=== PATIENT | female | born 1935 | race Caucasian/White ===

== ENCOUNTER 2017-07-05 01:27 | Emergency (ER) | payer MEDICARE | END 2017-07-05 02:15 | disposition home or self-care (01) | LOC: BURERS 01:27 | DX: S60.945A Unspecified superficial injury of left ring finger, initial encounter (principal); E78.5 Hyperlipidemia, unspecified; I10 Essential (primary) hypertension; F41.9 Anxiety disorder, unspecified; F32.9 Major depressive disorder, single episode, unspecified; Z79.899 Other long term (current) drug therapy; W22.8XXA Striking against or struck by other objects, initial encounter | CPT/HCPCS: 99283 ==

== ENCOUNTER 2018-02-04 14:29 | Emergency (ER) | payer MEDICARE ==
[2018-02-04] MEDS ORDERED: Benzonatate 100 MG CAP ONE (14:51)
== END 2018-02-04 14:56 | disposition home or self-care (01) ==
LOC: BURERS 14:29
DX: R05 Cough (principal); F41.9 Anxiety disorder, unspecified; F32.9 Major depressive disorder, single episode, unspecified; I10 Essential (primary) hypertension; E78.5 Hyperlipidemia, unspecified; Z79.82 Long term (current) use of aspirin; Z79.899 Other long term (current) drug therapy
CPT/HCPCS: 99283

== ENCOUNTER 2018-08-09 20:44 | Emergency (ER) | payer MEDICARE ==
[2018-08-09] MEDS ORDERED: Ibuprofen 200 MG TAB ONE (21:43)
--- NOTE | 2018-08-09 22:39 | RAD ---
RADIOGRAPH LEFT WRIST 3 VIEWS: 08/09/18 at 8:48 p.m. HISTORY: 83-year-old female with left wrist pain. No mention of trauma. FINDINGS: No acute fracture is identified, but the osteopenia and degenerative changes could obscure a nondispl aced or minimally displaced fracture. If there is snuffbox tenderness following trauma that suggests an occult scaphoid fracture, then the general recommendation is immobilization followed by follow up radiograph in 5 - 10 days. There are very severe degenerative changes at the first CMC joint, with ch ronic subluxation and angulation, and absence of portions of bone of both the base of first metacarpa l and the trapezium. There is severe chondrocalcinosis of the TFCC. Other than the first CMC, the res t of the joint spaces are maintained without erosions or significant osteophytes. There are also calc ifications in the soft tissues volar and dorsal to the carpal bones, and adjacent to the first CMC. IMPRESSION: 1. No fracture identified. 2. Severe osteoarthrosis of the first carpometacarpal joint. 3. Extensive chondrocalcinosis, including that of the triangular fibrocartilage complex. 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 POS: [facility]
== END 2018-08-09 21:50 | disposition home or self-care (01) ==
LOC: BURERS 20:44
DX: S63.502A Unspecified sprain of left wrist, initial encounter (principal); E78.5 Hyperlipidemia, unspecified; I10 Essential (primary) hypertension; F32.9 Major depressive disorder, single episode, unspecified; Z79.899 Other long term (current) drug therapy; Z79.82 Long term (current) use of aspirin; W01.0XXA Fall on same level from slipping, tripping and stumbling without subsequent striking against object, initial encounter
CPT/HCPCS: 29125

== ENCOUNTER 2018-09-27 14:42 | Emergency (ER) | payer MEDICARE ==
[2018-09-27 15:14] LABS: #Basophils 0.1 thou/uL (0.0-0.2); #Eosinphils 0.2 thou/uL (0.0-0.7); #Lymphocytes 1.4 thou/uL (1.20-3.40); #Monocytes 0.4 thou/uL (0.11-0.59); #Neutrophils 2.9 thou/uL (1.40-6.50); %Eosinophils 3.8 % (0.0-10.0); %Lymphocytes 28.3 % (21.0-51.0); %Monocytes 7.6 % (0.0-10.0); %Neutrophils 59.3 % (42.0-75.0); Hemoglobin 13.1 g/dL (12.0-16.0); Mean Corpuscular HGB CONC 33.9 g/dL (32.0-36.0); Mean Corpuscular Hemoglobin 29.6 pg (27.0-31.0); Mean Corpuscular Volume 87.4 fL (78.0-98.0); Mean Platelet Volume 8.2 fL (7.4-10.4); Platelet Count 171 thou/uL (130-400); RBC Distribution Width 11.7 % (11.5-14.5); Red Blood Cell (RBC) Count 4.42 mill/uL (4.20-5.40); White Blood Cell (WBC) Count 4.9 thou/uL (4.8-10.8)
[2018-09-27 15:33] LABS: ALT (SGPT) 17 U/L (8-55); AST (SGOT) 15 U/L (5-34); Albumin 3.8 g/dL (3.4-4.8); Alkaline Phosphatase 68 U/L (40-150); Anion Gap 13 mmol/L (10-20); BUN (Urea Nitrogen) 22 mg/dL (9.8-20.1); Bilirubin, Total 0.3 mg/dL (0.2-1.2); Calc. Creatinine Clearance 0 mL/min (70-130); Calcium 9.2 mg/dL (7.8-10.44); Carbon Dioxide 24 mmol/L (23-31); Chloride 100 mmol/L (98-107); Estimated GFR-MDRD 55; Globulin 2.6 g/dL (2.4-3.5); Glucose 111 mg/dL (83-110); Potassium 4.1 mmol/L (3.5-5.1); Protein, Total 6.4 g/dL (6.0-8.3); Sodium 133 mmol/L (136-145)
[2018-09-27 15:38] LABS: CKMB 1.6 ng/mL (0-6.6); Troponin I Less than 0.010 ng/mL (< 0.028)
--- NOTE | 2018-09-27 15:45 | RAD ---
CHEST TWO VIEWS: 09/27/18 HISTORY: Cough and weakness. COMPARISON: 04/03/17. FINDINGS: The cardiac silhouette and pulmonary vasculature are unremarkable. Mediastinum is midline with aortic calcification. No confluent air space consolidation, pneumothorax, or pleural fluid. IMPRESSION: Atherosclerosis. No active cardiopulmonary abnormalities are otherwise demonstrated. POS: [facility]
[2018-09-27 17:02] LABS: Clarity Cloudy (Clear)
[2018-09-27 17:03] LABS: Bilirubin Negative (Negative); Blood, Urine Trace (Negative); Glucose, Urine (Dipstick) Negative (Negative); Leukocyte Large (Negative); Nitrite Positive (Negative); Protein, Urine (Dipstick) Negative (Neg-Trace); Urobilinogen 0.2 mg/dL (0.2-1.0); pH, Urine 6.5 (5.0-9.0)
[2018-09-27 17:08] LABS: Bacteria/HPF 4+ HPF (None Seen); Crystals/HPF None Seen HPF (Negative); Hyaline Casts/LPF NONE SEEN LPF (0-3 Hyaline); Other Casts/LPF None Seen LPF (0-3 Hyaline); Oval Fat Bodies/HPF None Seen HPF (None Seen); RBC/HPF 0-3 HPF (0-3); Renal Epithelial None Seen HPF (0-3); Sperm/HPF None Seen HPF (None Seen); Squamous Epithelial None Seen HPF (0-3); Transitional Epithelial NONE SEEN HPF (0-3); Trichomonas/HPF None Seen HPF (None Seen); Yeast-All Forms None Seen HPF (None Seen)
== END 2018-09-27 17:15 | disposition home or self-care (01) ==
LOC: BURERS 14:42
DX: N39.0 Urinary tract infection, site not specified (principal); I10 Essential (primary) hypertension; E78.5 Hyperlipidemia, unspecified; F32.9 Major depressive disorder, single episode, unspecified; Z79.899 Other long term (current) drug therapy
CPT/HCPCS: 51701; 71046; 80053; 81003; 81015; 82553; 83605; 84484; 85025; 93005; A4353

== ENCOUNTER 2019-06-02 12:39 | Emergency (ER) | payer MEDICARE | END 2019-06-02 13:20 | disposition home or self-care (01) | LOC: BURERS 12:39 | DX: L50.9 Urticaria, unspecified (principal); I10 Essential (primary) hypertension; E78.5 Hyperlipidemia, unspecified; F32.9 Major depressive disorder, single episode, unspecified; Z79.82 Long term (current) use of aspirin; Z79.899 Other long term (current) drug therapy | CPT/HCPCS: 99282 ==

== ENCOUNTER 2020-08-22 12:54 | Inpatient (IN) | payer MEDICARE, OTHER ==
[2020-08-22 13:42] LABS: Bilirubin Negative (Negative); Blood, Urine Trace (Negative); Clarity Clear (Clear); Glucose, Urine (Dipstick) Negative (Negative); Ketone, Urine Negative (Negative); Leukocyte Negative (Negative); Nitrite Negative (Negative); Protein, Urine (Dipstick) Trace mg/dL (Neg-Trace); Specific Gravity, Urine 1.015 (1.005-1.030); Urobilinogen 0.2 mg/dL (Less than 2)
[2020-08-22 13:44] LABS: Bacteria/HPF Rare-Few HPF (None Seen); RBC/HPF 0-3 HPF (0-3); Squamous Epithelial 0-3 HPF (0-3); WBC/HPF None Seen HPF (0-3)
[2020-08-22 14:28] LABS: Hemoglobin 13.6 g/dL (12.0-16.0); Mean Corpuscular HGB CONC 31.1 g/dL (32.0-36.0); Mean Corpuscular Hemoglobin 29.2 pg (27.0-31.0); Platelet Count 146 thou/uL (130-400); RBC Distribution Width 11.9 % (11.5-14.5); Red Blood Cell (RBC) Count 4.65 mill/uL (4.20-5.40); White Blood Cell (WBC) Count 7.2 thou/uL (4.8-10.8)
[2020-08-22 14:38] LABS: ALT (SGPT) 13 U/L (8-55); AST (SGOT) 12 U/L (5-34); Albumin 3.6 g/dL (3.4-4.8); Alkaline Phosphatase 63 U/L (40-110); Anion Gap 16 mmol/L (10-20); BUN (Urea Nitrogen) 21 mg/dL (9.8-20.1); Bilirubin, Total 0.3 mg/dL (0.2-1.2); Calc. Creatinine Clearance 0 mL/min (70-130); Carbon Dioxide 21 mmol/L (23-31); Chloride 103 mmol/L (98-107); Estimated GFR-MDRD 44; Globulin 2.9 g/dL (2.4-3.5); Glucose 103 mg/dL (83-110); Lipase 35 U/L (8-78); Potassium 3.8 mmol/L (3.5-5.1); Protein, Total 6.5 g/dL (6.0-8.3); Sodium 136 mmol/L (136-145)
[2020-08-22 14:58] LABS: MDiff Complete? YES
[2020-08-22 14:59] LABS: Manual Diff?? YES
[2020-08-22 15:00] LABS: Band 32 % (5-11); Lymphocytes 8 % (21-51); Monocytes 5 % (0-10); Neutrophil 55 % (42-75)
[2020-08-22] MEDS ORDERED: Sodium Chloride 0.9% 100 ML ONE (16:24)
[2020-08-22] MEDS ORDERED: Piperacillin/Tazobactam 4.5 GM VIAL ONE (16:24)
[2020-08-22 18:27] VITALS: BMI 21.7
[2020-08-22] MEDS ORDERED: Acetaminophen 325 MG TAB PO PRN (19:00)
[2020-08-22] MEDS ORDERED: FLU VACC QS2020-21(65YR UP)/PF 240 MCG/0.7 ML SYRINGE IM ONE (21:00)
[2020-08-22] MEDS: traZODone HCl 50 MG TAB PO SCH (22:14)
[2020-08-22] MEDS: Amlodipine 5 MG TAB PO SCH (22:14)
[2020-08-22] MEDS: Latanoprost 0.005% Ophth Soln 2.5 ml Bottle EA EYE SCH (22:15)
[2020-08-22] MEDS: Polyethylene Glycol OPTH DROP 15 ML BOT EA EYE SCH (22:15)
[2020-08-22] MEDS ORDERED: Piperacillin/Tazobactam 4.5 GM in Sodium Chloride 0.9% 100 ML IVPB SCH (23:59)
[2020-08-23] MEDS ORDERED: cloNIDine 0.1 MG TAB ONE (00:37)
[2020-08-23] MEDS: cloNIDine 0.1 MG TAB PO PRN (01:03)
[2020-08-23 05:31] LABS: ALT (SGPT) 12 U/L (8-55); AST (SGOT) 11 U/L (5-34); Albumin 3.2 g/dL (3.4-4.8); Alkaline Phosphatase 52 U/L (40-110); Anion Gap 15 mmol/L (10-20); BUN (Urea Nitrogen) 21 mg/dL (9.8-20.1); Bilirubin, Total 0.5 mg/dL (0.2-1.2); Calc. Creatinine Clearance 27 mL/min (70-130); Calcium 8.5 mg/dL (7.8-10.44); Carbon Dioxide 20 mmol/L (23-31); Chloride 104 mmol/L (98-107); Estimated GFR-MDRD 35; Globulin 2.5 g/dL (2.4-3.5); Glucose 95 mg/dL (83-110); Potassium 3.1 mmol/L (3.5-5.1); Protein, Total 5.7 g/dL (6.0-8.3); Sodium 136 mmol/L (136-145)
[2020-08-23 06:00] LABS: Hemoglobin 12.7 g/dL (12.0-16.0); Mean Corpuscular Hemoglobin 29.6 pg (27.0-31.0); Mean Corpuscular Volume 92.4 fL (78.0-98.0); Mean Platelet Volume 9.9 fL (7.4-10.4); Platelet Count 148 thou/uL (130-400); RBC Distribution Width 11.9 % (11.5-14.5); White Blood Cell (WBC) Count 7.2 thou/uL (4.8-10.8)
[2020-08-23 06:06] LABS: Band 10 % (5-11); Lymphocytes 9 % (21-51); MDiff Complete? YES; Monocytes 10 % (0-10); Neutrophil 70 % (42-75); Platelet Morphology Comment Appears Adequate; RBC Morphology Normal; Reactive Lymphocytes 1 % (0-10)
[2020-08-23] MEDS ORDERED: Potassium Chloride 20 MEQ TAB PO SCH (06:15)
--- NOTE | 2020-08-23 07:20 | RAD ---
PORTABLE CHEST: Date: 08/22/2020 An AP portable film at 1351 hours is compared with the 08/25/2019 study. There is mild elevation of the left hemidiaphragm which was not present before. There is a little bit of linear streaking in the left base which could be atelectasis. Slight blunting of the left costoph renic angle seems little different than before, however. The heart is borderline in size, but not sub stantially different over time. There is no congestion of the vessels or pulmonary edema. Faint calci fication is present in the aortic arch. IMPRESSION: Slight volume loss in the left lung today compared to the 08/25/2019 study. The cause is not apparent . POS: [facility]
[2020-08-23] MEDS: D5 1/2 NS w/20 mEq KCL 1,000 ML IV SCH (07:46)
[2020-08-23] MEDS: Venlafaxine HCl XR 75 MG CAP PO SCH (09:10)
[2020-08-23] MEDS: busPIRone HCl 5 MG TAB PO SCH (09:10)
[2020-08-23] MEDS: metroNIDAZOLE 250 MG TAB PO SCH ×3 (09:10→21:38)
[2020-08-23] MEDS: Aspirin 81 mg Enteric Coated Tablet PO SCH (09:11)
[2020-08-23] MEDS: Vit A,C & E/Lutein/Minerals Tablet PO SCH (09:11)
[2020-08-23] MEDS: Polyethylene Glycol OPTH DROP 15 ML BOT EA EYE SCH ×2 (09:11→21:39)
--- NOTE | 2020-08-23 12:52 | HP ---
CHIEF COMPLAINT: Fever and diarrhea. HISTORY OF PRESENT ILLNESS: An 85-year-old female was brought to the [facility] Emergency Department last night by her systems operator with complaints of fever, malaise, decreased intake and diarrhea present for the last several days. The patient was noted to have a rectal temperature of 101.4 in the emergency department. She does not identify any recent sick contacts, travel, antibiotic intake, or any other etiology which may have precipitated her diarrhea and fever. She denied having any significant upper respiratory symptoms nor any genitourinary symptoms. She has no evidence of skin infection to cause her fever either. Stool cultures were obtained along with urine and blood cultures. Initial lab work showed no leukocytosis, however, noted elevation in bands, neutrophils at 32%. She was provided with IV vanc and Zosyn in the emergency department. She was also swabbed for COVID. Secondary to the patient's advanced age, deconditioned state, elevated fever with bandemia and associated diarrhea she has been admitted for further care. PAST MEDICAL HISTORY: Includes hypertension, dyslipidemia, anxiety with depression, gastroesophageal reflux disease, and scoliosis. PAST SURGICAL HISTORY: Includes cardiac catheterization, hysterectomy and bladder sling surgery. SOCIAL HISTORY: The patient denies smoking, ETOH, or illicit drug use. She lives at home alone but has a systems operator 6 days a week. FAMILY HISTORY: Noncontributory. ALLERGIES: NO KNOWN DRUG ALLERGIES. CURRENT MEDICATIONS: 1. Latanoprost ophthalmic one drop to each eye daily. 2. Aspirin 81 mg daily. 3. Venlafaxine 225 mg daily. 4. Systane eye drops. 5. Buspirone 7.5 mg daily. 6. PreserVision AREDS daily. 7. Amlodipine 5 mg daily. 8. Trazodone 50 mg at bedtime. REVIEW OF SYSTEMS: GENERAL: The patient complains of fatigue and fever. EAR, NOSE AND THROAT: She denies sore throat, nasal drainage or congestion. CARDIOVASCULAR: She denies chest pain or palpitations. RESPIRATORY: Denies shortness of breath or cough. GASTRO: Denies nausea or vomiting. She does report diarrhea and mild intermittent generalized abdominal discomfort. GENITOURINARY: Denies dysuria. MUSCULOSKELETAL: Denies joint swelling or pain. DERM: Denies rash. NEURO: Denies headache. LABORATORY DATA: White blood cell count of 7.2, hemoglobin 13.6, hematocrit 46.7, and platelets are 146. Bandemia, elevated at 32. This is improved. Band neutrophils at 10 this morning. Sodium 136, potassium is 3.1, BUN is 21 with a creatinine 1.42, GFR is 35, glucose 95, lactic acid 1.1, AST 11, ALT 12. Troponin was 0.016. BNP at 237. Lipase 35. TSH is 1.1107. Urine was negative for leukocyte esterase and nitrites. COVID swab results are pending. Chest x-ray results are pending. PHYSICAL EXAMINATION: VITAL SIGNS: Temperature is 99.1, pulse is 78, blood pressure is 112/54, respiratory rate of 16, oxygen is 95% on room air. GENERAL: The patient is alert and oriented, in no acute distress. She has generalized weakness. HEAD, EYES, EARS, NOSE, AND THROAT: She has dry mucous membranes. Pupils are equal, round, and reactive to light. Extraocular muscles are intact bilaterally. She is normocephalic, atraumatic. NECK: Supple with no meningeal signs. CARDIAC: Regular rate and rhythm. Normal S1, S2. No murmurs, rubs, or gallops. PULMONARY: No respiratory distress. Clear to auscultation bilaterally without wheezes, rales, or rhonchi. ABDOMEN: Soft and nontender to palpation with no rebound or guarding. EXTREMITIES: No clubbing, cyanosis, or edema. SCDs are in place. She has a peripheral IV access in the right upper extremity. NEUROLOGIC: Nonfocal with cranial nerves 2 through 12 grossly intact. DERM: No rashes. ASSESSMENT AND PLAN: 1. Fever. I suspect this to be secondary to the patient's diarrheal illness as she does not display urinary tract infection, skin infection or obvious upper respiratory infection. She is on contact and respiratory precautions with a COVID swab, results pending at this time. Cultures of stool, urine and blood are all pending and will be followed. She has been started on Zosyn empirically. I will add p.o. metronidazole secondary to suspicion for Clostridium difficile. 2. Diarrhea. Cultures are pending with antibiotics started as stated above. 3. Dehydration. The patient has dry mucous membranes with mild renal impairment from her baseline with a BUN to creatinine ratio of 20:1. We will therefore start gentle intravenous hydration at 50 mL an hour, D5 half-normal saline with 20 mEq KCl. 4. Hypokalemia. We will give her a one-time dose of potassium chloride 40 mEq now and further supply this gently through intravenous hydration. 5. Hypertension. The patient has been resumed on her usual blood pressure medications. She did have an elevated blood pressure overnight for which p.r.n. clonidine has been added for systolic blood pressure readings greater than 160 as needed. 6. Anxiety with depression. She will be resumed on her usual medications for this. 7. Generalized weakness. We will seek physical therapy evaluation secondary to patient's advanced age and deconditioning. 8. Code status is full. Job ID: [id number] [facility]
[2020-08-23] MEDS ORDERED: Saccharomyces boulardii 250 MG CAP PO SCH (15:15)
[2020-08-23 16:12] LABS: SARS-CoV-2 MS2 Positive; SARS-CoV-2 N Gene Negative; SARS-CoV-2 S Gene Negative; SARS-CoV-2 by NAA Not Detected (NotDetected); SARS-CoV-2 orf1ab Negative
[2020-08-23] MEDS: Amlodipine 5 MG TAB PO SCH (21:38)
[2020-08-23] MEDS: traZODone HCl 50 MG TAB PO SCH (21:38)
[2020-08-23] MEDS: Latanoprost 0.005% Ophth Soln 2.5 ml Bottle EA EYE SCH (21:39)
[2020-08-24 05:21] LABS: Hemoglobin 13.2 g/dL (12.0-16.0); Mean Corpuscular HGB CONC 30.6 g/dL (32.0-36.0); Mean Corpuscular Hemoglobin 28.9 pg (27.0-31.0); Mean Corpuscular Volume 94.5 fL (78.0-98.0); Mean Platelet Volume 8.6 fL (7.4-10.4); Platelet Count 125 thou/uL (130-400); RBC Distribution Width 11.8 % (11.5-14.5); Red Blood Cell (RBC) Count 4.57 mill/uL (4.20-5.40); White Blood Cell (WBC) Count 5.9 thou/uL (4.8-10.8)
[2020-08-24 05:26] LABS: ALT (SGPT) 14 U/L (8-55); AST (SGOT) 13 U/L (5-34); Albumin 3.3 g/dL (3.4-4.8); Alkaline Phosphatase 51 U/L (40-110); Anion Gap 12 mmol/L (10-20); BUN (Urea Nitrogen) 19 mg/dL (9.8-20.1); Bilirubin, Total 0.3 mg/dL (0.2-1.2); Calc. Creatinine Clearance 35 mL/min (70-130); Calcium 8.8 mg/dL (7.8-10.44); Carbon Dioxide 21 mmol/L (23-31); Chloride 107 mmol/L (98-107); Estimated GFR-MDRD 48; Globulin 2.5 g/dL (2.4-3.5); Glucose 97 mg/dL (83-110); Potassium 3.7 mmol/L (3.5-5.1); Protein, Total 5.8 g/dL (6.0-8.3); Sodium 136 mmol/L (136-145)
[2020-08-24] MEDS: cloNIDine 0.1 MG TAB PO PRN ×2 (05:33→20:29)
[2020-08-24] MEDS: D5 1/2 NS w/20 mEq KCL 1,000 ML IV SCH ×2 (05:35→23:38)
[2020-08-24 05:52] LABS: Band 8 % (5-11); Eosinophils 2 % (0-10); Lymphocytes 15 % (21-51); MDiff Complete? YES; Monocytes 11 % (0-10); Neutrophil 63 % (42-75); Platelet Morphology Comment Appears Decreased; RBC Morphology Normal
[2020-08-24] MEDS: metroNIDAZOLE 250 MG TAB PO SCH ×3 (08:19→19:57)
[2020-08-24] MEDS: Aspirin 81 mg Enteric Coated Tablet PO SCH (08:19)
[2020-08-24] MEDS: Venlafaxine HCl XR 75 MG CAP PO SCH (08:20)
[2020-08-24] MEDS: Saccharomyces boulardii 250 MG CAP PO SCH (08:20)
[2020-08-24] MEDS: busPIRone HCl 5 MG TAB PO SCH (08:20)
[2020-08-24] MEDS: Vit A,C & E/Lutein/Minerals Tablet PO SCH (10:25)
[2020-08-24] MEDS: Piperacillin/Tazobactam 4.5 GM in Sodium Chloride 0.9% 100 ML IVPB SCH ×3 (10:25→17:27)
[2020-08-24] MEDS: Polyethylene Glycol OPTH DROP 15 ML BOT EA EYE SCH ×2 (10:38→19:58)
[2020-08-24] MEDS ORDERED: Piperacillin/Tazobactam 4.5 GM in Sodium Chloride 0.9% 100 ML IVPB SCH (14:00)
[2020-08-24] MEDS: Amlodipine 5 MG TAB PO SCH (19:57)
[2020-08-24] MEDS: traZODone HCl 50 MG TAB PO SCH (19:57)
[2020-08-24] MEDS: Latanoprost 0.005% Ophth Soln 2.5 ml Bottle EA EYE SCH (19:58)
[2020-08-25] MEDS: Piperacillin/Tazobactam 4.5 GM in Sodium Chloride 0.9% 100 ML IVPB SCH ×2 (01:41→09:54)
[2020-08-25] MEDS: cloNIDine 0.1 MG TAB PO PRN (05:14)
[2020-08-25 05:34] LABS: #Basophils 0.1 thou/uL (0.0-0.2); #Eosinphils 0.2 thou/uL (0.0-0.7); #Monocytes 0.8 thou/uL (0.11-0.59); #Neutrophils 3.9 thou/uL (1.40-6.50); %Basophils 0.9 % (0.0-1.0); %Eosinophils 3.1 % (0.0-10.0); %Lymphocytes 17.2 % (21.0-51.0); %Neutrophils 65.9 % (42.0-75.0); Hemoglobin 12.7 g/dL (12.0-16.0); Mean Corpuscular HGB CONC 30.5 g/dL (32.0-36.0); Mean Corpuscular Hemoglobin 28.7 pg (27.0-31.0); Mean Corpuscular Volume 94.3 fL (78.0-98.0); Mean Platelet Volume 9.1 fL (7.4-10.4); Platelet Count 130 thou/uL (130-400); RBC Distribution Width 11.8 % (11.5-14.5); Red Blood Cell (RBC) Count 4.42 mill/uL (4.20-5.40); White Blood Cell (WBC) Count 5.9 thou/uL (4.8-10.8)
[2020-08-25 05:36] LABS: ALT (SGPT) 15 U/L (8-55); AST (SGOT) 16 U/L (5-34); Albumin 3.4 g/dL (3.4-4.8); Alkaline Phosphatase 62 U/L (40-110); Anion Gap 12 mmol/L (10-20); BUN (Urea Nitrogen) 17 mg/dL (9.8-20.1); Bilirubin, Total 0.3 mg/dL (0.2-1.2); Calc. Creatinine Clearance 37 mL/min (70-130); Calcium 8.9 mg/dL (7.8-10.44); Carbon Dioxide 22 mmol/L (23-31); Chloride 105 mmol/L (98-107); Estimated GFR-MDRD 50; Globulin 2.4 g/dL (2.4-3.5); Glucose 93 mg/dL (83-110); Potassium 3.5 mmol/L (3.5-5.1); Protein, Total 5.8 g/dL (6.0-8.3); Sodium 135 mmol/L (136-145)
[2020-08-25 06:17] VITALS: TEMP 97.8
[2020-08-25 06:18] VITALS: BP 148/62
[2020-08-25] MEDS ORDERED: Potassium Chloride 10 MEQ TAB PO SCH (08:00)
[2020-08-25] MEDS: busPIRone HCl 5 MG TAB PO SCH (09:56)
[2020-08-25] MEDS: metroNIDAZOLE 250 MG TAB PO SCH (09:56)
[2020-08-25] MEDS: Venlafaxine HCl XR 75 MG CAP PO SCH (09:56)
[2020-08-25] MEDS: Aspirin 81 mg Enteric Coated Tablet PO SCH (09:57)
[2020-08-25] MEDS: Vit A,C & E/Lutein/Minerals Tablet PO SCH (09:57)
[2020-08-25] MEDS: Polyethylene Glycol OPTH DROP 15 ML BOT EA EYE SCH (09:59)
[2020-08-25] MEDS: Saccharomyces boulardii 250 MG CAP PO SCH (10:13)
--- NOTE | 2020-08-27 04:55 | DIS ---
DATE OF ADMISSION: 08/22/2020 DATE OF DISCHARGE: 08/25/2020 ADMISSION DIAGNOSES: Fever, diarrhea, dehydration, and hypokalemia. SECONDARY DIAGNOSES: Hypertension, anxiety with depression, and generalized weakness. PROCEDURES: 08/22/2020, chest x-ray showed slight volume loss in the left lung today compared to the 08/25/2019 study, the cause is not apparent. HOSPITAL COURSE: An 85-year-old female, presented to the [facility] Emergency Department secondary to symptoms of fever, malaise, diarrhea, and decreased intake over a 2- to 3-day time period. The patient had an elevated rectal temperature of 101.4 in the emergency department. Labs were obtained showing no leukocytosis, but noted bandemia. Her other labs were largely within normal limits. She was swabbed for flu and COVID and these were negative. Cultures were obtained of blood, urine, and stool. She was provided IV vancomycin and Zosyn in the emergency department and admitted to the floor for further care. The patient upon followup labs did show hypokalemia, suspected from her diarrhea and this in combination with her dehydration was started on D5 half-normal saline with potassium chloride. She also received oral potassium chloride to replete her potassium levels, which was effective. The patient defervesced after approximately 24 hours, and on the floor was provided IV Zosyn and p.o. Flagyl. Her urine and blood cultures have returned with no growth to date beyond 48 hours. Stool testing showed to be negative for Clostridium difficile, Campylobacter, E coli, Giardia, and Cryptosporidium. Preliminary stool culture read shows many normal enteric yvonne present. At this time, the only pending culture is that of norovirus, which should be returning in the next couple days. The patient's diarrhea gradually improved during her stay and she was able to transition off IV fluids to a p.o. diet, which was well tolerated. Secondary to her advanced age and physical deconditioning, she was evaluated and treated by Physical Therapy and Occupational Therapy during her stay. She has been arranged to have further residential and therapy via [facility]. At this time, the patient is feeling much better with good p.o. intake and improved output along with being afebrile and reassuring cultures and is appropriate for discharge back to her home setting. DISPOSITION: The patient will discharge home with [facility] to provide further residential care and therapy. She may follow up with her primary care provider, Dr. Flores next week. DISCHARGE MEDICATIONS: The patient will resume her home medications including, 1. Amlodipine 5 mg daily. 2. Aspirin 81 mg daily. 3. Buspirone 7.5 mg daily. 4. Latanoprost eye drops. 5. Daily multivitamin. 6. Systane eye drops. 7. Trazodone 50 mg at bedtime. 8. Venlafaxine 225 mg daily. New medications will be, 1. Flagyl 500 mg t.i.d. x5 days. 2. Clonidine 0.1 mg p.o. q.6 hours p.r.n. systolic blood pressure greater than 160. 3. Potassium chloride 10 mEq p.o. daily. 4. Florastor probiotic 250 mg daily x10 days. Total time spent in preparation and discharge equals 33 minutes. Job ID: [id number] [facility]
[2020-08-27 09:15] LABS: Norovirus GI Negative (Negative); Norovirus GII Negative (Negative)
== END 2020-08-25 15:20 | disposition home health service (06) | DRG 392 ==
LOC: BURERS 12:54 → BURMED 16:00 → OBSVTOIN 16:00
PROVIDERS: ADMIT Family Medicine; ATTEND Family Medicine
DX: R19.7 Diarrhea, unspecified (principal); E78.00 Pure hypercholesterolemia, unspecified; I10 Essential (primary) hypertension; R50.9 Fever, unspecified; F32.9 Major depressive disorder, single episode, unspecified; F41.9 Anxiety disorder, unspecified; K21.9 Gastro-esophageal reflux disease without esophagitis; E87.6 Hypokalemia; E86.0 Dehydration; Z20.828 Contact with and (suspected) exposure to other viral communicable diseases; D72.825 Bandemia; Z79.899 Other long term (current) drug therapy; Z90.710 Acquired absence of both cervix and uterus
CPT/HCPCS: 36415; 51701; 71045; 80053; 81003; 81015; 83605; 83690; 83880; 84443; 84484; 85025; 87040; 87045; 87046; 87077; 87086; 87324; 87328; 87329; 87427; 87449; 87635; 87798; 87804; 93005; 96365; 96367; J2543; J3370; J3480; J3490; U0003